=== PATIENT | female | born 1995 | race African-American/Black ===

== ENCOUNTER 2016-08-04 21:07 | Emergency (ER) | payer OTHER ==
[2016-08-04 21:15] VITALS: RESP 16; TEMP 98
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
[2016-08-04] MEDS ORDERED: IBUPROFEN 400 MG TAB PO STA (22:33)
[2016-08-04] MEDS ORDERED: traMADol 50 MG TAB PO STA (22:33)
[2016-08-04 23:16] VITALS: BP 130/82; PULSE 92
== END 2016-08-04 23:15 | disposition home or self-care (01) ==
LOC: EC 21:07
DX: S09.90XA Unspecified injury of head, initial encounter (principal); V49.59XA Passenger injured in collision with other motor vehicles in traffic accident, initial encounter; F17.200 Nicotine dependence, unspecified, uncomplicated
CPT/HCPCS: 70450; 99284

== ENCOUNTER 2021-09-16 01:32 | Emergency (ER) | payer OTHER ==
[2021-09-16 03:18] LABS: Appearance,Urine Clear (Clear); Bilirubin,Urine Negative (Negative); Blood,Urine Small (Negative); Color,Urine Yellow; Glucose,Urine (UA) Negative (Negative); Ketones,Urine Negative (Negative); Leukocyte Esterase,Urine Small (Negative); Mucus,Urine Moderate /hpf; Nitrite,Urine Negative (Negative); Protein,Urine Trace (Negative); RBC,Urine 5 /hpf (0-5); Specific Gravity,Urine 1.033 (1.001-1.035); Squamous Epithelial Cell,Urine 4 /hpf (0-4); Urobilinogen,Urine <2.0 mg/dL (<2.0); WBC,Urine 7 /hpf (0-5)
[2021-09-16] MEDS ORDERED: ONDANSETRON ODT 4 MG TAB PO STA (04:46)
[2021-09-16] MEDS ORDERED: ACETAMINOPHEN TAB 500 MG TAB PO STA (04:46)
[2021-09-16] MEDS ORDERED: IBUPROFEN 800 MG TAB PO STA (04:46)
[2021-09-16] MEDS ORDERED: DEXAMETHASONE SOD PHOSPHATE 10 MG/ML 1 ML VIAL IM STA (05:18)
--- NOTE | 2021-09-16 05:18 | ED ---
Fever HPI - General Chief Complaint: Nausea/Vomiting/Diarrhea Stated Complaint: vomiting, cough Time Seen by Provider: 09/16/21 04:46 Source: patient, RN notes reviewed, old records reviewed Mode of arrival: ambulatory Limitations: no limitations - History of Present Illness Initial Comments: This is a 26-year-old female to the ER today. Patient resents today for evaluation regards to not feeling well nausea vomiting and diarrhea with abdominal pain. Some sore throat. Patient does admit to feeling hot chills fever. Myalgias. Unsure if she does have coronavirus or fluid contacts. No known travel history otherwise. Patient is no medical history takes no medications MD Complaint: fever, malaise, weakness, other (Nausea vomiting diarrhea) -: days(s) Temperature Source: subjective Context: sick contacts, multiple patients with similar symptoms Associated Symptoms: chills, myalgias, sore throat Treatments Prior to Arrival: none - Related Data Previous Rx's Medication Instructions Recorded traMADol HCl [Ultram] 50 mg PO Q6H PRN #20 tab 08/04/16 Dexamethasone [Decadron] 6 mg PO DAILY #5 tablet 09/16/21 Allergies Allergy/AdvReac Type Severity Reaction Status Date / Time No Known Allergies Allergy Verified 09/16/21 02:03 Review of Systems ROS Statement: Those systems with pertinent positive or pertinent negative responses have been documented in the HPI. ROS Other: All systems not noted in ROS Statement are negative. Past Medical History Past Medical History: Asthma Additional Past Medical History / Comment(s): childhood asthma History of Any Multi-Drug Resistant Organisms: None Reported Past Surgical History: No Surgical Hx Reported Past Psychological History: Bipolar, Depression Smoking Status: Current every day smoker Past Alcohol Use History: Occasional Past Drug Use History: None Reported General Exam Limitations: no limitations General appearance: alert, in no apparent distress Head exam: Present: atraumatic, normocephalic, normal inspection Eye exam: Present: normal appearance, PERRL, EOMI. Absent: scleral icterus, conjunctival injection, periorbital swelling ENT exam: Present: normal exam, mucous membranes moist Neck exam: Present: normal inspection. Absent: tenderness, meningismus, lymphadenopathy Respiratory exam: Present: normal lung sounds bilaterally. Absent: respiratory distress, wheezes, rales, rhonchi, stridor Cardiovascular Exam: Present: normal rhythm, tachycardia, normal heart sounds. Absent: systolic murmur, diastolic murmur, rubs, gallop, clicks GI/Abdominal exam: Present: soft, normal bowel sounds. Absent: distended, tenderness, guarding, rebound, rigid Extremities exam: Present: normal inspection, full ROM, normal capillary refill. Absent: tenderness, pedal edema, joint swelling, calf tenderness Back exam: Present: normal inspection Neurological exam: Present: alert, oriented X3, CN II-XII intact Psychiatric exam: Present: normal affect, normal mood Skin exam: Present: warm, dry, intact, normal color. Absent: rash Course Vital Signs 09/16/21 09/16/21 01:57 07:13 Temperature 101.3 F H 98.8 F Pulse Rate 110 H 87 Respiratory 22 20 Rate Blood Pressure 131/78 130/79 O2 Sat by Pulse 100 97 Oximetry - Reevaluation(s) Reevaluation #1: 09/16/21 Medical record is reviewed Patient symptoms are improving here in the emergency department Patient is informed of results and questions have been answered Medical Decision Making - Medical Decision Making 18 female with nausea vomiting diarrhea fever. Patient's positive for coron avirus. Patient symptoms improved here in the ER she can be discharged home - Lab Data Lab Results 09/16/21 09/16/21 09/16/21 Range/Units 02:08 02:19 02:19 Urine Color Yellow Urine Appearance Clear (Clear) Urine pH 6.0 (5.0-8.0) Ur Specific [place] 1.033 (1.001-1.035) Urine Protein Trace H (Negative) Urine Glucose (UA) Negative (Negative) Urine Ketones Negative (Negative) Urine Blood Small H (Negative) Urine Nitrite Negative (Negative) Urine Bilirubin Negative (Negative) Urine Urobilinogen <2.0 (<2.0) mg/dL Ur Leukocyte Esterase Small H (Negative) Urine RBC 5 (0-5) /hpf Urine WBC 7 H (0-5) /hpf Ur Squamous Epith Cells 4 (0-4) /hpf Urine Mucus Moderate H (None) /hpf Urine HCG, Qual Not Detected (Not Detectd) Coronavirus (PCR) Detected A (Not Detectd) Disposition Clinical Impression: Coronavirus infection, Fever Disposition: HOME SELF-CARE Condition: Good Instructions (If sedation given, give patient instructions): Coronavirus Disease 2019 (COVID-19) Prescriptions: Dexamethasone [Decadron] 6 mg PO DAILY #5 tablet Is patient prescribed a controlled substance at d/c from ED?: No Referrals: Teddy Alvarado MD [Primary Care Provider] - 1-2 days
[2021-09-16] MEDS ORDERED: BEBTELOVIMAB (EUA) 175 MG/2 ML VIAL IV ONE (06:00)
[2021-09-16 07:14] VITALS: BP 130/79; PULSE 87; RESP 20; TEMP 98.8
== END 2021-09-16 07:17 | disposition home or self-care (01) ==
LOC: EC 01:32
DX: U07.1 COVID-19 (principal); J45.909 Unspecified asthma, uncomplicated; F17.200 Nicotine dependence, unspecified, uncomplicated
CPT/HCPCS: 81001; 81025; 87635; 99284; 96372; J1100; Q0222